=== PATIENT | male | born 1990 | race Caucasian/White ===

== ENCOUNTER 2024-06-21 11:51 | Emergency (ER) | payer OTHER ==
[~2024-06-21] VITALS: Ht 188 cm; Wt 113.7 kg
[2024-06-21 14:33] VITALS: BP 145/85; TEMP 98.2; O2SAT 96
== END 2024-06-21 14:40 | disposition home or self-care (01) ==
LOC: M ED 11:51
DX: F32.A Depression, unspecified (principal); R51.9 Headache, unspecified; F17.200 Nicotine dependence, unspecified, uncomplicated; Z87.442 Personal history of urinary calculi